=== PATIENT | male | born 1960 | race Caucasian/White ===

== ENCOUNTER 2017-10-02 21:00 | Emergency (ER) | payer OTHER ==
[~2017-10-02] VITALS: Ht 185.4 cm; Wt 73.1 kg
[~2017-10-02 21:00] MED LIST: HUMALOG100 UNIT/2 SC; LANTUS 3 M100 UNITS1 SC; LEVEMIR100 UNIT/2 SC; LO-DOSE ASPIRIN81 M1 PO; METOPROLOL TART25 MG PO; VANCOMYCIN1.25 GM/25 IV; ZOSYN 3.3753.375 GM IV
[2017-10-02] MEDS ORDERED: PERCOCET 5/31 TABLET PO (21:58)
[2017-10-02] MEDS ORDERED: AUGMENTIN875 MG PO (21:58)
[2017-10-02 22:11] VITALS: BP 136/69
== END 2017-10-02 22:12 | disposition home or self-care (01) ==
LOC: EME 21:00
PROC: 3E0T3BZ Introduction of Anesthetic Agent into Peripheral Nerves and Plexi, Percutaneous Approach (ICD-10-PCS; principal; 2017-10-02)
DX: S61.451A Open bite of right hand, initial encounter (principal); W54.0XXA Bitten by dog, initial encounter; E11.9 Type 2 diabetes mellitus without complications; I25.2 Old myocardial infarction; Z95.5 Presence of coronary angioplasty implant and graft; Z79.4 Long term (current) use of insulin; Z79.82 Long term (current) use of aspirin; Z88.2 Allergy status to sulfonamides; Z87.891 Personal history of nicotine dependence
CPT/HCPCS: 73130; 99281; 99284; S0020